=== PATIENT | female | born 1955 | race Caucasian/White ===

== ENCOUNTER 2019-01-09 06:30 | Inpatient (IN) | payer MEDICAID ==
[~2019-01-09] VITALS: Ht 160 cm; Wt 78.5 kg
[2019-01-09 06:35] VITALS: Ht 160 cm; Wt 78.5 kg
--- NOTE | 2019-01-09 06:46 | NUR ---
PATIENT AAOX4 PRESENTS TO THE ED WITH C/O CHEST PAIN THAT RADIATES TO THE NECK. PATIENT STATES ABOUT 40 MINS AGO, WHILE SHE WAS WORKING THE PAIN STARTED. SHE STARTED TO FEEL DIZZY. EKG COMPLETED, BREATHING EVEN AND UNLABORED, SKIN WARM, DRY AND INTACT. PATIENT DENIES N/V. PATIENT PLACED ON ALL MONITORS FOR FURTHER OBSERVATION. GURNEY PLACED IN LOW POSITION WITH SIDE RAILS UP FOR SAFETY. WILL CONTINUE TO MONITOR.
--- NOTE | 2019-01-09 06:50 | NUR ---
MEDICATED PER MD ORDERS
--- NOTE | 2019-01-09 07:00 | NUR ---
PORTABLE XRAY AT BEDSIDE FOR CHEST XRAY
--- NOTE | 2019-01-09 07:02 | NUR ---
PROVIDED REPORT TO ELIZABETH OAKES FOR CONTINUED CARE OF PATIENT.
--- NOTE | 2019-01-09 07:04 | NUR ---
RECEIVED REPORT FROM ARMANDO LAW, FOOD TRAY ASSEMBLER NURSE
--- NOTE | 2019-01-09 07:07 | NUR ---
PT IS AWAKE AND ALERT. PT REPORTS SHE IS FEELING "A LITTLE" BETTER. PT'S MEDICAL HX REPORTS SHE HAS SEIZURES BUT PT AND SON BOTH DENY. PT DENIES ANY MEDICAL HX. PT ON FULL CM. NAD. RESP E/U. VITALS STABLE AT THIS TIME. WILL CTM.
--- NOTE | 2019-01-09 07:12 | NUR ---
ASKED PT AGAIN IF SHE SPECIFICALLY HAD "EPILEPSY" PT REPORTS SHE DID "A LONG TIME AGO". PT STATES IT WAS APPROXIMATELY 10-15 YEARS AGO.
[2019-01-09 07:15] LABS: BASOPHIL % 0.3 % (0-2); PLATELET COUNT 285 x10^3mcL (130-400); RED CELL DISTRIBUTION WIDTH 13.8 % (11.5-14.5)
[2019-01-09 07:35] LABS: CALCIUM 9.2 mg/dL (8.5-10.1); CARBON DIOXIDE 20.7 mmol/L (21-32); CHLORIDE SERUM 106 mmol/L (98-107); CREATININE SERUM 0.8 mg/dL (0.6-1.0); GFR1 > 60 mL/min; GLUCOSE SERUM 109 mg/dL (74-106); SODIUM SERUM 142 mmol/L (136-145)
[2019-01-09 07:40] LABS: ALBUMIN 3.6 g/dL (3.4-5.0); ALKALINE PHOSPHATASE 96 U/L (46-116); ALT/SGPT 38 U/L (14-59); AST/SGOT 41 U/L (15-37); BILIRUBIN TOTAL 0.3 mg/dL (0.20-1.00); TOTAL PROTEIN, SERUM 7.7 g/dL (6.4-8.2)
--- NOTE | 2019-01-09 08:02 | NUR ---
EMT AT BEDSIDE FOR REPEAT EKG
--- NOTE | 2019-01-09 10:33 | NUR ---
PT MEDICATED PER DOCTORS ORDERS
[2019-01-09 10:55] LABS: CHOLESTEROL/HDL RATIO 3.6; MAGNESIUM 2.2 mg/dL (1.8-2.4); PHOSPHOROUS 3.6 mg/dL (2.5-4.9)
[2019-01-09 11:05] LABS: T3 TOTAL 1.52 ng/mL
[2019-01-09 11:07] LABS: FREE THYROXINE INDEX 2.1 ug/dL (1.4-4.5)
--- NOTE | 2019-01-09 12:01 | NUR ---
PATIENT ARRIVED TO FLOOR VIA [facility] ACCOMPANIED BY SON BRETT AND RN CHAMP. PATIENT IS A/OX4, DENIES CHEST PAIN AT THIS TIME. AMBULATORY WITH ASSIST TO BED. PATIENTS STATES SHE HAS SLIGHT DIZZINESS. DENIES N/V/D. VS STABLE. NSR WITH HR 70. INFORMED PATIENT AND SON OF PLAN OF CARE, TO AWAIT DR LINARES TO SPEAK WITH PATIENT. INSTRUCTED PATIENT ON USE OF CALL LIGHT, BED CONTROLS, WELL TO CALL FOR STAFF FOR ASSISTANCE TO BR AND PRN MEDICATIONS. BOTH PATIENT AND SON VERBALIZES UNDERSTANDING. CALL LIGHT IN REACH AT THIS TIME.
[2019-01-09 12:11] VITALS: BP 104/55
[2019-01-09 16:14] VITALS: BP 129/79
--- NOTE | 2019-01-09 18:38 | NUR ---
PATIENT IN BED SLEEPING. SON AT BEDSIDE. DR RADER NOT IN TO SPEAK WITH PATIENT OR SON. INFORMED SON THAT HE MAY NOT BE HERE TONIGHT BUT WILL TOMORROW. SON AWARE. NO COMPLAINTS OF CHEST PAIN AT THIS TIME. NO RESULT YET FROM TODAYS ECHOCARGIOGRAM. WILL ENDORSE TO ONCOMING NURSE. CALL LIGHT IN REACH.
--- NOTE | 2019-01-09 19:32 | NUR ---
RECEIVED PT FROM DAY SHIFT RN. PT AAOX4 DENIES HEADAHCE OR DIZZINESS. TELE #17 SR HR 70 DENIES CHEST PAIN OR PRESSURE. BREATHING EVEN AND UNLABORED ON RA WITH NO SOB NOTED. IV LAC PATENT, SL. ABD SOFT AND ROUND, ACTIVE BOWEL SOUNDS, DENIES ABD PAIN/N/V. NO SIGNS OF DISTRESS NOTED. SAFETY PRECAUTIONS IN PLACE. CALL BUTTON WITHIN REACH. SON AT BEDSIDE. WILL CONTINUE TO MONITOR.
[2019-01-09 21:02] VITALS: BP 96/55
--- NOTE | 2019-01-10 | NUR ---
PT RESTING, BREATHING EVEN AND UNLABORED WITH NO SOB NOTED. NO SIGNS OF ACUTE DISTRESS. CALL BUTTON WITHIN REACH. WILL CONTINUE TO MONITOR.
--- NOTE | 2019-01-10 02:00 | NUR ---
DR VIEYRA MADE AWARE TROP 0.825, PT DENIES ANY CHEST PAIN. NO NEW ORDERS AT THIS TIME.
--- NOTE | 2019-01-10 02:14 | NUR ---
PT RESTING, BREATHING EVEN AND UNLABORED WITH NO SOB NOTED. NO SIGNS OF ACUTE DISTRESS. CALL BUTTON WITHIN REACH. WILL CONTINUE TO MONITOR.
[2019-01-10 05:42] VITALS: BP 94/50
[2019-01-10 06:07] LABS: BASOPHIL % 0.4 % (0-2); PLATELET COUNT 251 x10^3mcL (130-400); RED CELL DISTRIBUTION WIDTH 13.9 % (11.5-14.5)
--- NOTE | 2019-01-10 06:20 | NUR ---
PT SLEPT MOST OF THE NIGHT WITH NO SIGNS OF DISTRESS NOTED. PT DENIES ANY CHEST PAIN. MEDICATED PER EMAR. NO SIGNS OF ACUTE DISTRESS. PT AMBULATORY WITH BRP. CALL BUTTON WITHIN REACH. WILL CONTINUE TO MONITOR AND ENDORSE CARE TO DAY SHIFT RN.
[2019-01-10 06:22] LABS: CALCIUM 8.7 mg/dL (8.5-10.1); CARBON DIOXIDE 24.5 mmol/L (21-32); CHLORIDE SERUM 111 mmol/L (98-107); CREATININE SERUM 0.6 mg/dL (0.6-1.0); GFR1 > 60 mL/min; GLUCOSE SERUM 102 mg/dL (74-106); MAGNESIUM 2.3 mg/dL (1.8-2.4); PHOSPHOROUS 3.1 mg/dL (2.5-4.9); POTASSIUM SERUM 3.8 mmol/L (3.5-5.1); SODIUM SERUM 144 mmol/L (136-145)
--- NOTE | 2019-01-10 07:35 | NUR ---
PT RESTING, BREATHING EVEN AND UNLABORED. NO SIGNS OF DISTRESS NOTED. ENDORSED CARE TO DAY SHIFT RN, ALL QUESTIONS ADDRESSED.
--- NOTE | 2019-01-10 08:00 | NUR ---
RECEIVED PATIENT ALERT AND ORIENTED TIMES FOUR. PATIENT IS SPAINISH SPEAKING BUT UNDERSTANDS SOME MONEGASQUE. SHE DENIES CHEST PAIN OR SOB AT THIST TIME. IV TO HEPLOCK AND PATIENT HAS BEEN TOLERATING DIET AND FLUIDS WELL. PATIENT LAST TROPONIN IS AT 0.825 AND THE CHEST XRAY SHOWS CARDIOMEGALY. GRANDDAUGHTER AT BESIDE AND SUPPORTIVE WITH CARE. PATIENT HAD CHEST PAIN WHILE WORKING AND SHE INDICATED DENNIS FACTORY IS VERY HOT INSIDE AND SHE PACKS PLASTIC ORNELAS UTENSILS IN A PLACE IN [place]. SHE HAD CHEST PRESSURE AND PAIN RADIATING THE LEFT ARM AND NECK. SHE HAS BEEN WITH ELEVATED TROPONINS WITHT E[facility] FIRST AT 0.080, 0.411, 0.99, AND THE LAST AT 0.825. SHE IS WAITING TO BE SEEN BY THE [employer]ASTE TREATMENT OPERATOR FOR NEXT PLAN FO CARE. PATIENT AHS VITALS AT THIS TIME AT 98.1, 56, 18, 94/50, 97% ON ROOM AIR. THE METROPOLOL AND LISINOPRIL HAVE BEEN HELD DUE TO LOW BP AT THIS TIME. GAVE THE LOVENOX ORDERED. WILL CONTINUE TO MONITOR INDICATED.
[2019-01-10 09:21] VITALS: BP 102/55
[2019-01-10 12:56] VITALS: BP 100/52
--- NOTE | 2019-01-10 13:00 | NUR ---
Discount pharmacy card and list to low cost medical clinics given to patient by Jessica.
--- NOTE | 2019-01-10 14:12 | NUR ---
PLAVIX GIVEN INDICATED. PATIENT SEEN BY DR RADER AND ALSO LIPITOR TO BE GIVEN WELL. PLAN OF CARE FOR STRESS TEST PER THE PQATIENT ON THURSDAY THIS WEEK.
[2019-01-10 16:45] VITALS: BP 110/54
--- NOTE | 2019-01-10 18:53 | NUR ---
TOLERATED DIET AND FLUIDS AND DENIES CHEST PAIN AT THIS TIME. PATIENT HAS TOLERATE DOOB AND IN NO ACUTE DISTRESS AT THIS TIME.
[2019-01-10 19:01] LABS: microscopic required? NO
[2019-01-10 19:15] LABS: urine erythrocyte NEGATIVE (NEGATIVE)
--- NOTE | 2019-01-10 19:15 | NUR ---
REPORT RECEIVED FROM DAY SHIFT RN. PATIENT WAS SEEN AND IS RESTING COMFORTABLY IN BED WITH FAMILY AT BEDSIDE. NO DISTRESS NOTED. BREATHING EVEN ON ROOM AIR. NO SOB OR RESP DISTRESS NOTED. DENIES CHEST PAIN/PRESSURE. C/O HEADACHE, BUT DAY SHIFT NURSE SAID SHE WILL MEDICATE. IV TO THE LAC. PATENT AND INTACT. NO REDNESS OR SWELLING NOTED. COMFORT AND SAFETY MEASURES IN PLACE. BED IS LOCKED AND IN THE LOWEST POSITION. SEIZURE PRECAUTIONS IN PLACE. SIDE RAILS UP X2. CALL LIGTH IS WITHIN REACH. WILL CONTINUE TO MONITOR
[2019-01-10 19:23] LABS: AMPHETAMINE QUAL UR NONE DETECTED (See below)
[2019-01-10 21:00] VITALS: BP 121/68
--- NOTE | 2019-01-10 23:20 | NUR ---
PATIENT IS RESTING IN BED WITH EYES CLOSED. NO DISTRESS NOTED. BREATHING EVEN ON ROOM AIR. CALL LIGHT IS WITHIN REACH. SAFETY PRECAUTIONS IN PLACE. WILL CONTINUE TO MONITOR.
--- NOTE | 2019-01-11 03:10 | NUR ---
PATIENT IS AWAKE LAYING IN BED LISTENING TO MUSIC ON HER PHONE. DENIES CHEST PAIN/PRESSURE. NO C/O PAIN. BREATHIN EVEN ON ROOM AIR. CALL LIGHT IS WITHIN REACH. WILL CONTINUE TO MONITOR .
[2019-01-11 06:02] LABS: BASOPHIL % 0.4 % (0-2); PLATELET COUNT 281 x10^3mcL (130-400); RED CELL DISTRIBUTION WIDTH 13.9 % (11.5-14.5)
--- NOTE | 2019-01-11 06:06 | NUR ---
PATIENT SLEPT IN LONG INTERVALS THROUGHOUT THE NIGHT. NO ACUTE CHANGES NOTED. NO DISTRESS NOTED. DENIES CHEST PAIN/PRESSURE THROUGHOUT THE NIGHT. NO C/O PAIN THROUGHOUT THE NIGHT. IV TO THE LAC, SALINE LOCK. PATENT AND INTACT. NO REDNESS OR SWELLING NOTED. SAFETY MEASURSES IN PLACE. SEIZURE PRECAUTIONS IN PLACE. NO SEIZURES NOTED. CALL LIGHT IS WITHIN REACH. WILL ENDORSE CARE TO DAY SHIFT RN.
[2019-01-11 06:17] VITALS: BP 125/47
[2019-01-11 06:21] LABS: CALCIUM 9.5 mg/dL (8.5-10.1); CARBON DIOXIDE 25.7 mmol/L (21-32); CHLORIDE SERUM 108 mmol/L (98-107); CREATININE SERUM 0.8 mg/dL (0.6-1.0); GFR1 > 60 mL/min; GLUCOSE SERUM 101 mg/dL (74-106); POTASSIUM SERUM 3.7 mmol/L (3.5-5.1); SODIUM SERUM 145 mmol/L (136-145)
--- NOTE | 2019-01-11 07:10 | NUR ---
RECEIVED PATIENT RESTING IN BED COMFORTABLY WITH EYES CLOSED, EASILY AROUSABLE TO VERBAL STIMULI, A/O X4, DENIES HAQ OR DIZZINESS. TELE # [address], DENIES CHEST PAIN. BREATHING EVEN AND UNLABBORED ON ROOM AIR, DENIES SOB, NO DISTRESS NOTED. PATIENT DENIES ANY PAIN. IV TO LAC H/L INTACT AND PATENT. DR. REYES AT BEDSIDE TO SPEAK WITH AND ASSESS PATIENT, ALL QUESTIONS AND CONCERNS ADDRESSED. PATIENT CALM WITH CARE. INSTRUCTED TO CALL FOR ASSISTANCE IF NEEDED. SAFETY PRECAUTIONS MAINTAINED. WILL MONITOR.
[2019-01-11 09:00] VITALS: BP 103/62
--- NOTE | 2019-01-11 09:10 | NUR ---
PATIENT SITTING UP IN BED COMFORTABLY NO DISTRESS NOTED. VSS. ALL NEEDS ATTENDED TO, SAFETY PRECAUTIONS MAINTAINED. WILL MONITOR.
--- NOTE | 2019-01-11 10:54 | NUR ---
ROUNDS MADE- DR. TINEO, RESIDENT TEAM, CHARGE NURSE AND PRIMARY NURSE AT BEDSIDE. POC REVIEWED WITH PATIENT- PATIENT DENIES ANY CHEST PAIN, BUT DOES C/O HEADACHE WILL MEDICATE PRN. PATIENT IS AWARE OF PLAN FOR STRESS TEST TOMORROW MORNING 01/12/19 AT 1100. ALL QUESTIONS AND CONCERNS ADDRESSED. SAFETY PRECAUTIONS MAINTAINED. WILL MONITOR.
--- NOTE | 2019-01-11 11:06 | NUR ---
PATIENT C/O ACHING HEADACHE 10/20, MEDICATED WITH TYLENOL PO (SEE eMAR). ALL NEEDS ATTENDED TO, SAFETY PRECAUTIONS MAINTAINED. WILL MONITOR.
--- NOTE | 2019-01-11 12:10 | NUR ---
PATIENT RESTING IN BED COMFORTABLY WITH EYES CLOSED, BREATHING EVEN AND UNLABBORED, NO DISTRESS NOTED. SAFETY PRECAUTIONS MAINTAINED. WILL MONITOR.
[2019-01-11 12:31] VITALS: BP 111/56
--- NOTE | 2019-01-11 15:10 | NUR ---
PATIENT RESTING IN BED COMFORTABLY WITH EYES CLOSED, BREAHTING EVEN AND UNLABBOERD, NO DISTRESS NOTED. SAFETY PRECAUTIONS MAINTAINED. WILL MONITOR.
--- NOTE | 2019-01-11 17:09 | NUR ---
PATIENT RESTING IN BED COMFORTABLY, NO DISTRESS NOTED, FAMILY AT BEDSIDE. PATIENT UPDATED AND INFORMED STRESS TEST WILL BE DONE TOMORROW 01/12/19 AT 1200. PATIENT VERBALIZED UNDERSTANDING. ALL QUESTIONS AND CONCERNS ADDRESSED. PATIENT TO REMAIN NPO AFTER MIDNIGHT.
[2019-01-11 18:11] VITALS: BP 106/55
--- NOTE | 2019-01-11 18:26 | NUR ---
PATIENT RESTING IN BED COMFORTABLY WATCHING TELEVISION, NO DISTRESS NOTED. NO ACUTE CHANGES NOTED DURING SHIFT. IV TO LAC H/L INTACT AND PATENT. ALL NEEDS ATTENDED TO DURING SHIFT, SAFETY PRECAUTIONS MAINTAINED. WILL ENDORSE CARE TO ONCOMING NURSE.
--- NOTE | 2019-01-11 19:05 | NUR ---
REPORT RECEIVED FROM DAY SHIFT RN. PATIENT WAS SEEN AND IS RESTING COMFORTABLY IN BED WITH FAMILY AT BEDSIDE. NO DISTRESS NOTED. BREATHING EVEN ON ROOM AIR. NO SOB OR RESP DISTRESS NOTED. DENIES CHEST PAIN/PRESSURE. NO C/O PAIN. IV TO THE LAC , SALINE LOCK. PATENT AND INTACT. NO REDNESS OR SWELLING NOTED. EDUCATED PATIENT THAT SHE WILL BE NPO AFTER NIGHT DUE TO HER STRESS TEST TOMORROW. PATIENT IS AWARE AND VERBALIZED UNDERSTANDING. SEZIURE PRECAUSTIONS IN PLACE FOR HX OF SEIZURES. SAFETY AND COMFORT MEASURES IN PLACE. BED IS LOCKED AND IN THE LOWEST POSITION. SIDE RAILS UP X2. CALL LIGHT IS WITHIN REACH. WILL CONTINUE TO MONITOR.
[2019-01-11 20:57] VITALS: BP 103/62
--- NOTE | 2019-01-11 23:41 | NUR ---
PATIENT IS AWAKE AND STANDING ON THE SIDE OF THE BED STRETCHING. PATIENT THEN WENT BACK TO BED. NO DISTRESS NOTED. BREATHING EVEN ON ROOM AIR. DENIES CHEST PAIN. SAFETY PRECAUTIONS IN PLACE. CALL LIGHT IS WITHIN REACH. WILL CONTINUE TO MONITOR.
--- NOTE | 2019-01-12 01:13 | NUR ---
PATIENT IS LAYING IN BED USING HER PHONE. NO DISTRESS NOTED. BREATHING EVEN ON ROOM AIR. DENIES CHEST PAIN. PATIENT IS AWARE OF NPO STATUS. SAFETY MEASURES UB PLACE. NO C/O PAIN. CALL LIGHT IS WITHIN REACH. WILL CONTINUE TO MONITOR.
[2019-01-12 06:02] VITALS: BP 118/70
[2019-01-12 06:31] LABS: BASOPHIL % 0.4 % (0-2); PLATELET COUNT 279 x10^3mcL (130-400); RED CELL DISTRIBUTION WIDTH 13.9 % (11.5-14.5)
--- NOTE | 2019-01-12 06:40 | NUR ---
PATIENT SLEPT IN LONG INTERVALS THROUGHOUT THE NIGHT. NO ACUTE CHANGES NOTED. BREATHING EVEN ON ROOM AIR. NO C/O OF PAIN OR CHEST PAIN. NPO DUE TO STRESS TEST. IV TO THE LAC, SL. PATENT AND INTACT. SEIZURE PRECAUTIONS IN PLACE. NO SEIZURES NOTED. SAFETY MEASURES IN PLACE. CALL LIGHT IS WITHIN REACH. WILL ENDORSE CARE TO DAY SHIFT RN
[2019-01-12 07:05] LABS: CALCIUM 9.2 mg/dL (8.5-10.1); CARBON DIOXIDE 27.3 mmol/L (21-32); CHLORIDE SERUM 108 mmol/L (98-107); CREATININE SERUM 0.8 mg/dL (0.6-1.0); GFR1 > 60 mL/min; GLUCOSE SERUM 107 mg/dL (74-106); MAGNESIUM 2.2 mg/dL (1.8-2.4); POTASSIUM SERUM 3.8 mmol/L (3.5-5.1); SODIUM SERUM 144 mmol/L (136-145)
--- NOTE | 2019-01-12 07:40 | NUR ---
RECEIVED PT FROM [employer] OFFICER RN. Magen/GAURAV. TELE# [id number]. DENIES CHEST PAIN/PRESSURE. RESPIRATIONS EQUAL AND UNLABORED ON RA. DENIES SOB AT THIS TIME. PT C/O OF SMALL HAQ BUT IS TOLERABLE AT THIS TIME. IV TO LAC SALINE LOCKED. NO REDNESS OR SWELLING NOTED. SEIZURE PRECATIONS IN PLACE. WILL CONTINUE TO MONITOR. CALL LIGHT IN REACH. BED IN LOWEST POSITION.
--- NOTE | 2019-01-12 09:37 | NUR ---
PT SITTING UP IN BED RESTING. NO ACUTE RESP DISTRESS NOTED ON RA. PT DENIES ANY CHEST PAIN/PRESSURE AT THIS TIME. IV SALINE LOCKED TO LAC. NO REDNESS OR SWELLING NOTED. FLUSHED WELL. GIVEN PO MEDS. TOLERATED WELL. HELD LOPRESSOR FOR STRESS TEST. PT REFUSED COLACE. PT STATES IT GAVE HER DIARRHEA. WILL CONTINUE TO MONITOR. CALL LIGHT IN REACH. BED IN LOWEST POSITION. SEIZURE PRECAUTIONS IN PLACE.
[2019-01-12 09:57] VITALS: BP 113/67
--- NOTE | 2019-01-12 11:07 | NUR ---
PT TAKEN OFF FLOOR VIA WHEELCHAIR FOR STRESS TEST.
--- NOTE | 2019-01-12 12:59 | NUR ---
PT BACK FROM [facility].
[2019-01-12 13:08] VITALS: BP 130/58
[2019-01-12] MEDS ORDERED: CLOPIDOGREL75 M1 PO (14:25)
[2019-01-12 14:26] VITALS: BP 130/58
[2019-01-12] MEDS ORDERED: LIPITOR80 MG PO (14:26)
[2019-01-12] MEDS ORDERED: ZES5 PO (14:28)
[2019-01-12] MEDS ORDERED: METOPROLOL TART25 M1 PO (14:28)
[2019-01-12] MEDS ORDERED: ECO81 PO (14:29)
[2019-01-12 16:41] VITALS: BP 123/60
--- NOTE | 2019-01-12 17:21 | NUR ---
PAGED DR. REYES REGARDING PT DISCHARGE AWAITING CALL BACK.
--- NOTE | 2019-01-12 17:25 | NUR ---
CALLED PICKER/PULLER PHONE SPOKE WITH DR. VIEYRA PER DR. VIEYRA WILL LET DR. REYES KNOW TO FINALIZE DISCHARGE.
--- NOTE | 2019-01-12 17:59 | NUR ---
PT SITTING UP IN BED. GIVEN DISCHARGE INSTRUCTIONS TO PT. PT INSTRUCTED TO CONTINUE LIGHT ACTIVITY NEEDED. PT ASKED WHAT TO EAT. PT RECOMMENDED TO CONSUME LOW SODIUM DIET AND LOW FAT. PT ENCOURAGED TO RETURN TO ER IF ANY WORSENING SYMPTOMS OF CHEST PAIN, SOB, FEVER OCCUR. PT GIVEN DISCHARGE INSTRUCTIONS WITH LABS AND TEST RESULTS. PT ENCOURAGED TO TAKE WITH HER TO FOLLOW UP AP[facility]MENT AT [facility] ON 01/21 @ 1400. PT GIVEN NEW PRESCRIPTIONS AND INSTRUCTED ON WHEN TO TAKE. PT ENCOURAGED TO MONITOR BLOOD PRESSURE AT HOME PRIOR TO TAKEN BP MEDICATIONS. PT VERBALIZED UNDERSTANDING. ALL QUESTIONS AND CONCERNS ADDRESSED. IV TO LAC REMOVED CATHETER INTACT. NO REDNESS OR SWELLING NOTED. TELE#[id number] RETURNED TO MACHINE SHOP WORKER. PT TAKEN OFF FLOOR BY FREDRICK. NO PROBLEMS ENCOUNTERED.
--- NOTE | 2019-01-12 18:35 | NUR ---
PT STATES HE SON IS GOING TO PICK HER UP AND TAKE HER HOME.
== END 2019-01-12 18:55 | disposition home or self-care (01) | DRG 282 ==
LOC: ED 06:30 → DU 10:14
PROVIDERS: Emergency Medicine; Internal Medicine; ADMIT Internal Medicine
DX: I21.4 Non-ST elevation (NSTEMI) myocardial infarction (principal); R56.9 Unspecified convulsions; E87.6 Hypokalemia; E66.9 Obesity, unspecified; Z68.32 Body mass index [BMI] 32.0-32.9, adult; Z98.891 History of uterine scar from previous surgery
CPT/HCPCS: 83880; 84439; A9500; G0378; J1650; J2785; J7030; Q0092